=== PATIENT | male | born 1970 | race Caucasian/White ===

== ENCOUNTER → 2016-05-03 | Day surgery (SDC) | payer OTHER ==
[~2016-05-03] VITALS: Ht 175.3 cm; Wt 137.5 kg
[~2016-05-03] MED LIST: ACETAMINOPHEN 325 MG TAB PO PRN; ADVIN50/60 INH; ALBUAER19 INH; ASPI325T39 PO; BUSP5TAB59 PO; CHOL2000 PO; CRS10 PO; DIGO0.2519 PO; ESCI1TAB10 PO; FENTANYL CITRATE INJ 50 MCG/1 ML 2 ML VIAL ONE; FEXO1TAB49 PO; FLUO0.0566 TOP; FRS/40 PO; HEPARIN SOD (PORCINE) 1000 UNIT/ML 10 ML VIAL ONE; LISI5TAB PO; METH-307 PO; METO1TAB70 PO; MIDAZOLAM HCL 1 MG/ML 2ML VIAL ONE; NORT25CA PO; NiCARDipine HCL INJ 2.5 MG/ML 10 ML AMP ONE; OMEP40CA PO; POTA10CA28 PO; PRLSR20 PO; ROSU5TAB PO; SPRIN/30 INH; SYMIN160 INH; TPRSR100 PO
[2016-05-03 06:21] VITALS: Ht 175.3 cm; Wt 137.5 kg
[2016-05-03 06:22] VITALS: BP 136/92; PULSE 84; TEMP 36.4; O2SAT 94
--- NOTE | 2016-05-03 07:22 | Procedure Note ---
Pre-Mod Sedation Assessment General Date of Moderate Sedation: May 03, 2016. Vital Signs: Vital Signs Past 12 Hours Date Time Temp Pulse Resp B/P Pulse Ox O2 Delivery O2 Flow Rate FiO2 05/03/16 06:22 36.4 84 18 136/92 94 Room Air Review Cardiovascular: regular rate, rhythm, normal peripheral pulses, + JVD Abdomen: normal bowel sounds, non tender, soft, + distended Lungs: lungs clear, normal breath sounds, no respiratory distress Airway Class: III Pre-Sedation Airway Assessment Oral Cavity: Dental Abnormalities Short Thick Neck: Yes Hx of Sleep Apnea: Yes Smoking Status: Former Smoker ASA Classification: Class III Procedure Planning Contraindications-for Mod Sed: None Yes Notes The planned sedation has been discussed with the patient and consent obtained. I have identified the patient, determined the appropriateness of sedation and have assessed the patient immediately prior to the procedure. All medicine(s) and interventions are by my order.
--- NOTE | 2016-05-03 08:13 | Discharge Instructions ---
Discharge Instructions Procedure Procedure Date: May 03, 2016. Reason for Visit: Chest Pain. Discharge Discharge Date: May 03, 2016. Discharge Diagnosis: Non-ischemic cardiomyopathy/Congestive heart failure Last Recorded Wt (Kilograms): 137.5 Anesthesia Post Anesthesia Instructions: With IV Sedation: * Do not drive today. * May resume driving tomorrow * Do not make important decisions or sign legal documents today. * Call [facility] if: 1. Temperature elevations greater than 101 degrees F. 2. Uncontrollable pain. 3. Excessive bleeding, bruising or redness around access sites 4. Persistent nausea and vomiting. 5. Medication intolerance (nausea, vomiting or rash). * For nausea and vomiting use only clear liquids such as: tea, soda, bouillon until nausea subsides, then gradually increase diet as tolerated. * If you have any concerns or questions, call your cardiologists office. If physician is unavailable and it is an emergency, call 911 or go to the nearest emergency room. Instructions Activity Recommendations: limitations as noted below (Avoid flexing right wrist for 24 hours. Avoid flexing righ hip for 24 hours. No heavy lifting (> 20 lbs) for 72 hours. After 72 hours can resume normal activities gradually.), shower/bathe limit (No soaking tub bathes for 5 days) Allergies: Coded Allergies: Latex (Unverified Allergy, Mild, Contact, 05/03/16) Penicillins (Unverified Allergy, Unknown, HIVES, 11/10/14) Uncoded Allergies: TAPE (Allergy, Unknown, Rash, 05/03/16) Follow Up Additional Instructions: Take Lasix 80 mg (2 tablets) twice daily for next 3 days. Then resume prior Lasix 40 mg twice daily Continue to weigh yourself daily. Follow-up with: Follow-up with CHF clinic in 2 weeks. Follow-up with Dr. Cuellar in 2 months. [facility] Recommendations: Call your doctor if: * Temperature above 101 degrees * Pain not relieved by pain medicine ordered * There is increased drainage or redness from any incision * You have any unanswered questions or concerns. Your Doctors Instructions noted above were prepared by provider Linwood Cuellar. Patient Signature Section: Patient Instructions Signature Page Orion Oliva Patient (or Guardian) Signature/Date: I have read and understand the instructions given to me by my caregivers. Caregiver/RN/Doctor Signature/Date: The above-named patient and/or guardian has received patient instructions on this date. + Original Patient Signature Page (only) stays with chart. Please make copy for patient.
--- NOTE | 2016-05-03 08:14 | Procedure Note ---
Post-Mod Sedation Assessment General Date of Moderate Sedation May 03, 2016. Vital Signs: Vital Signs Past 12 Hours Date Time Temp Pulse Resp B/P Pulse Ox O2 Delivery O2 Flow Rate FiO2 05/03/16 08:00 77 16 134/83 95 Nasal Cannula 2 05/03/16 06:22 36.4 84 18 136/92 94 Room Air Review - Discharge Criteria Vital Signs Stable: Yes Alert/Oriented/Conversant: Yes Returned to Baseline Mental St: Yes Nausea Absent/Minimal: Yes Pain/Discomfort/Absent/Minimal: Yes Normal/Baseline Respirations: Yes Active Bleeding?: No Pt Received D/C Instructions: Yes Prescriptions Given: None Specific Proced. D/C Criteria Distal Pulses Present (Cardiac: Yes Groin site assessed-Card Cath: Yes Voided Prior To Discharge: N/A Discharged Patients Adult Escort/Transportation: Yes
[2016-05-03 08:22] LABS: ISTAT ARTERIAL BLOOD GAS HCO3 41 meq/L (19-24); ISTAT ARTERIAL BLOOD GAS PCO2 72 mmHg (35-46); ISTAT ARTERIAL BLOOD GAS PO2 91 mmHg (80-95); ISTAT ARTERIAL BLOOD GAS pH 7.36 (7.35-7.45); ISTAT CARBON DIOXIDE > 40 mEq/l (24-31)
[2016-05-03 08:22] LABS: ISTAT ARTERIAL BLOOD GAS HCO3 45 meq/L (19-24); ISTAT ARTERIAL BLOOD GAS PCO2 76 mmHg (35-46); ISTAT ARTERIAL BLOOD GAS PO2 38 mmHg (80-95); ISTAT ARTERIAL BLOOD GAS pH 7.38 (7.35-7.45); ISTAT CARBON DIOXIDE > 40 mEq/l (24-31)
--- NOTE | 2016-05-03 08:28 | Cardiac Catheterization ---
Procedure Note Procedure Date May 03, 2016. Pre-Procedure Diagnosis CHF, Cardiomyopathy AUC Score 7 Post-Procedure Diagnosis Normal Coronary Arteries, Elevated Intracardiac Pressures Procedure(s) Performed Coronary Angiography, Left Heart Cath, Right Heart Cath Director Dietetics Department Dr. Cuellar Note Taker(s) Glunt Estimated Blood Loss 20 Medication(s) Fentanyl, Heparin, Nitroglycerin, Versed, Lidocaine 1% Summary of Findings Indication: New Cardiomyopathy/CHF Access: 6Fr Slender Right Radial, 7Fr Right Femoral Vein (Latex Allergy) Catheters: Raghu Ferris Findings: LM - Luminal irregularities LAD - Moderate sized vessel that wraps around apex, mild 20% focal proximal stenosis, otherwise mid and distal luminal irregularities Circumflex - Moderate sized vessel with luminal irregularities RCA - Dominant, large vessel with luminal irregularities RA 14 RV 40/16 PA 40/21/30 LVEDP 25 ROSARIO/CI 6.3/2.6 TCO/CI 5.5/2.2 PA Sat 67 Arterial Closure: TR band Summary: 1. Essentially normal coronary arteries. Nonischemic Cardiomyopathy 2. Elevated biventricular filling pressures with mild pulmonary hypertension ( TPG 5) 3. Preserved cardiac output Recommendations: Increase diuretics, daily weights, close follow-up with CHF clinic Continue KIRILL/Beta-claude for nonischemic cardiomyopathy, titrate as able Continue ASA/statin Hemodynamics Rest Ao: 117/83/99 Final Ao: 118/77/95 LV: 122/25 Recommendations Medical therapy and/or Counseling Specimens None Contrast (mls) 50 Fluids (cc crystalloids) 25 Drains none Anesthesia moderate Procedural Complication(s) None Disposition Frame Table Operator Holding/Recovery ACC Data Cardiac Status Clinical evaluation leading to the procedure CAD Presntation: Sx unlikely to be ischemic Anginal Classification: CCS I Heart Failure: Yes, NYHA Class: CCS IV Cardiogenic Shock w/in 24Hrs: No Cardiac Arrest w/in 24Hrs: No Imaging studies past 6 months: Yes Stress studies past 6 months: No Standard Exercise Stress Test: No Stress Echocardiogram: No Stress Testing w/SPECT MPI: No Cardiac CTA: No Coronary Anatomy Dominant: Right Left Main (% Stenosis): Normal LAD (% Stenosis): Proximal (20) Circumflex (% Stenosis): Normal RCA (% Stenosis): Normal Diagnostic Physician's Name: Michael Cuellar MD Status: Elective Closure Device Percutaneous Entry Location: Radial Closure Device: Radial Band Recommendations: Medical therapy and/or Counseling Intraprocedure Events Significant Dissection: No Perforation: No
[2016-05-03 10:45] VITALS: BP 128/60; PULSE 74; O2SAT 96
== END | disposition home or self-care (01) ==
LOC: C.CATH 06:00
PROVIDERS: ATTEND Internal Medicine Interventional Cardiology
DX: I42.9 Cardiomyopathy, unspecified (principal); I27.2 Other secondary pulmonary hypertension; I50.9 Heart failure, unspecified; E78.5 Hyperlipidemia, unspecified; J90 Pleural effusion, not elsewhere classified; E66.01 Morbid (severe) obesity due to excess calories; G47.30 Sleep apnea, unspecified; Z68.41 Body mass index [BMI] 40.0-44.9, adult

== ENCOUNTER 2016-05-29 02:41 | Inpatient (IN) | payer OTHER ==
[~2016-05-29] VITALS: Ht 175.3 cm; Wt 142.2 kg
[~2016-05-29 02:41] MED LIST changes: -ACETAMINOPHEN 325 MG TAB PO PRN; -CRS10 PO; -FENTANYL CITRATE INJ 50 MCG/1 ML 2 ML VIAL ONE; -HEPARIN SOD (PORCINE) 1000 UNIT/ML 10 ML VIAL ONE; -METO1TAB70 PO; -MIDAZOLAM HCL 1 MG/ML 2ML VIAL ONE; -NiCARDipine HCL INJ 2.5 MG/ML 10 ML AMP ONE; -PRLSR20 PO
[2016-05-29 10:15] VITALS: BP 137/89; PULSE 75; TEMP 36.5; O2SAT 98; Ht 175.3 cm; Wt 142.2 kg
[2016-05-29] MEDS ORDERED: ONDANSETRON INJ 2 MG/ML 2 ML VIAL IV PRN (11:15)
[2016-05-29] MEDS ORDERED: ACETAMINOPHEN 325 MG TAB PO PRN (11:15)
[2016-05-29] MEDS ORDERED: ALBUTEROL HFA 8 GM INHALER INH PRN (11:30)
[2016-05-29 11:56] VITALS: BP 128/80; PULSE 74; TEMP 36.8; O2SAT 98
[2016-05-29] MEDS: SODIUM CHLORIDE 0.9% 1000ML 1,000 ML IV SCH ×2 (12:00→19:53)
[2016-05-29 12:35] LABS: HEMATOCRIT 41.7 % (42-52); MEAN CELL VOLUME 87.4 fL (80-100); MEAN CORPUSCULAR HEMOGLOBIN 30.4 pg (25-34); MEAN CORPUSCULAR HGB CONC 34.8 g/dl (32-36); MEAN PLATELET VOLUME 8.6 fL (7.4-10.4); PLATELET COUNT 252 K/uL (130-400); RED BLOOD COUNT 4.77 M/uL (4.7-6.1); WHITE BLOOD COUNT 7.78 K/uL (4.8-10.8)
--- NOTE | 2016-05-29 12:39 | HISTORY & PHYSICAL EXAMINATION ---
DATE OF ADMISSION: 05/29/2016 PRIMARY CARE PHYSICIAN: Dr. Moya from [place]. CHIEF COMPLAINT: Tiredness and increasing shortness of breath on exertion and also noted to have abnormal labs at [facility]. HISTORY OF PRESENT COMPLAINT: He is a 45-year-old obese male with significant past medical history of sleep apnea, COPD, cardiomyopathy with EF of 15%, hyperlipidemia, hypertension, GERD, apparently has been complaining of shortness of breath on exertion for a while. The symptoms have been going on since January of last year. He was seen by his primary care physician and for chronic leg edema, he was sent to [facility] in the lymphedema clinic and from there he was told that he needs to be seen by his primary care physician to work up for probable CHF. He went to see his primary care physician on and with more shortness of breath and chest pain. Following that, he was in [facility] and was noted to have an EF of 15%, so he was referred for cardiac cath at [facility]. He underwent a cardiac cath on 03 of May and was told that he does not have any significant coronary artery disease, but he has cardiomyopathy and with EF of 15%. Following that, he has had blood work that was on of last month and noted to have a creatinine of 1.3 at that time and yesterday he had another blood work and that did show creatinine to go up at 4.5 and he was in [facility] following that abnormal lab work and from the ER, he has been sent to [facility] for continuation of the medical care. He complains to have weakness and tiredness and shortness of breath on exertion but he does not have any chest pain, any palpitation. He denies to have any fever, chills or rigors and he does not have any problem with urine and/or bowel habit and his legs have reasonably controlled edema at this time. In [facility], he was noted to have a potassium of 5.2. BUN of 57 and creatinine 4.28 and digoxin level of 2.3. He has been in telemetry unit of [facility] and will go from there. PAST MEDICAL HISTORY: Significant for COPD with emphysema, hypertension, hyperlipidemia, sleep apnea, has not been using any CPAP but uses oxygen all the time, GERD, obesity, and also recent diagnosis of cardiomyopathy with EF of 15%. PAST SURGICAL HISTORY: Tonsillectomy as a child. FAMILY HISTORY: Significant that father of heart attack and mother of complication of diabetes and pneumonia. Brother has diabetes too. SOCIAL HISTORY: He is . He has 2 children. He quit smoking long time ago. He drinks occasionally and he has been on oxygen 24 hours a day, but he can do his activities of daily living pretty well. ALLERGIES: LATEX, PENICILLIN AND TAPE. MEDICATIONS: As an outpatient, he has been on digoxin 250 mcg 1 daily, furosemide 40 mg twice daily, lisinopril 5 mg daily, albuterol inhaler 2 puffs q.i.d. as needed, aspirin 325 mg daily, Symbicort 160/4.5 two puffs b.i.d., buspirone 5 mg twice daily, vitamin D3 2000 units daily, Lexapro 20 mg daily, Salena 180 mg daily, Advair Diskus 500/50 one puff b.i.d., Robaxin 750 mg daily, Toprol-XL 100 mg daily, nortriptyline 25 mg at night, Prilosec 40 mg daily, potassium 10 mEq daily, Crestor 10 mg daily, Spiriva HandiHaler 1 cap inhalation daily. REVIEW OF SYSTEMS: As in history of present complaint. Other systemic review unremarkable. PHYSICAL EXAMINATION: GENERAL: On examination on the medical floor, he was not having any acute distress. VITAL SIGNS: Temperature 36.5, pulse was 75, blood pressure 137/89, saturation 98% on 2 liters nasal cannula. HEENT: Unremarkable. NECK: Supple. No JVD, no bruit. CHEST: Decreased breath sounds but no wheezing and/or crackles. HEART: S1, S2 regular. No murmur. ABDOMEN: Soft, benign, distended. Nontender. Bowel sounds present. EXTREMITIES: 1+ edema bilaterally, chronic skin changes but no significant ulceration. MUSCULOSKELETAL SYSTEM: No acute arthritis in any joint. CENTRAL NERVOUS SYSTEM: He was alert, awake, oriented x3. No focal sensory and/or motor deficit appreciated. LABORATORY DATA: Noted from [facility], potassium 5.2, BUN 57. Creatinine 4.28, his creatinine was 1.3 on 16th of last month and his digoxin level was 2.3. EKG will be reviewed and chest x-ray will be reviewed as well. IMPRESSION AND PLAN: 1. Acute renal failure with Hyperkalemia. He is admitted to telemetry unit, monitor his kidney function. We will get a nephrology consult. We will give a small amount of IV fluid, given the history of congestive heart failure and the acute renal failure could be due to contrast induced nephropathy.Hold Potassium and ACEI. 2. Congestive heart failure with cardiomyopathy. His ejection fraction documented 15%. I did not get the cath report from [facility]. We will get a cardiology evaluation while in the hospital for further management of his cardiomyopathy and congestive heart failure. 3. Chronic obstructive pulmonary disease, seems to be stable at this time. Continue with inhalers and other bronchodilators. 4. Sleep apnea. He has not been using any CPAP and/or BiPAP. We will continue his oxygen therapy as usual. 5. Gastroesophageal reflux disease, has been on PPI. 6. Deep venous thrombosis prophylaxis with subQ heparin. 7. Code status: He will be a full code. In my clinical assessment, the beneficiary meets criteria as per CMS for 2-midnight stay in the hospital. KASIA
[2016-05-29 12:51] LABS: PARTIAL THROMBOPLASTIN RATIO 1.1; PROTHROMBIN TIME (PATIENT) 10.7 SECONDS (9.0-12.0)
--- NOTE | 2016-05-29 12:53 | DIAGNOSTIC IMAGING REPORT ---
CHEST ONE VIEW PORTABLE CLINICAL HISTORY: Congestive heart failure. COMPARISON STUDY: No previous studies for comparison. FINDINGS: The patient is rotated. This likely accounts for an abnormal left upper mediastinal contour. No pneumothorax or pleural effusion is present. There is borderline cardiomegaly without radiographic evidence of pulmonary edema. No consolidation is identified. IMPRESSION: 1. No acute cardiopulmonary findings. 2. Rotated study which likely accounts for an apparent abnormal left upper mediastinal contour. Follow-up nonemergent PA and lateral radiographs of the chest are recommended. Electronically signed by: Nikita Sanchez M.D. 05/29/2016 12:51 PM Dictated Date/Time: 05/29/2016 12:50 PM
[2016-05-29 12:54] LABS: ALT/SGPT 16 U/L (12-78); AST/SGOT 10 U/L (15-37); BLOOD UREA NITROGEN 55 mg/dl (7-18); BUN/CREATININE RATIO 14.5 (10-20); CALCIUM 8.4 mg/dl (8.5-10.1); CARBON DIOXIDE 29 mmol/L (21-32); CHLORIDE 103 mmol/L (98-107); GLUCOSE 97 mg/dl (70-99); MAGNESIUM 2.1 mg/dl (1.8-2.4); POTASSIUM 5.5 mmol/L (3.5-5.1); SODIUM 138 mmol/L (136-145)
[2016-05-29 12:57] LABS: ALKALINE PHOSPHATASE 43 U/L (45-117); PHOSPHORUS 3.5 mg/dl (2.5-4.9)
[2016-05-29] MEDS: HEPARIN SOD 5000 UNIT/0.5 ML CARP SQ SCH ×2 (14:15→21:54)
--- NOTE | 2016-05-29 14:56 | CARDIOLOGY CONSULTATION ---
DATE OF CONSULTATION: 05/29/2016 CONSULTATION REQUESTED BY: Dr. Cho. REASON FOR CONSULTATION: History of heart failure, acute kidney insufficiency. HISTORY OF PRESENT ILLNESS: Mr. Oliva is a pleasant 45-year-old man with a history of nonischemic cardiomyopathy, acute chronic systolic heart failure and complex medical issues as discussed below, who was admitted in the setting of acute kidney injury. Cardiology consulted for further management in the setting of patient's heart failure. As an outpatient, the patient is followed by myself and the [facility]. He was initially seen in consultation back in April, at which time he had recently been hospitalized at [facility] after he had had months of progressive lower extremity edema and shortness of breath. He was found to be in new onset heart failure and initial echo done there showed an EF of 15%. He was diuresed and started on guideline directed medical therapy. At time of initial evaluation concern for potential ischemic cause for patient's new LV dysfunction and he was sent for left and right heart catheterization which was completed 4 weeks ago. Heart catheterization showed no significant coronary artery disease. He was noted to have mildly elevated biventricular filling pressures with mild pulmonary hypertension and was continued on b.i.d. diuretics. Following discharge he followed up with the heart failure clinic 1 week ago, at which time the patient still appeared to be mildly volume overloaded and was continued on b.i.d. Lasix 40 mg p.o. Of note though, his shortness of breath had significantly improved and his weight continued to trend down. Since that visit, the patient states that he has continued to feel well. He had been ordered routine surveillance lab studies yesterday which were remarkable for elevated digoxin level at 2.5, a BUN elevated at 55, and a creatinine up to 4.4. Per prior creatinine baseline reportedly around 1.0, 1.1. He was instructed by his primary care physician to present to [facility], where reportedly received gentle IV fluids overnight and was transferred to [facility] this morning. Overall, at present, the patient states he feels well. Was feeling at his baseline, and denies any new chest pain, fevers, chills, any bleeding or other change in his urinary frequency. PAST MEDICAL HISTORY: 1. Chronic systolic heart failure. 2. Nonischemic cardiomyopathy with EF of 15%. 3. Mild chronic kidney disease with prior acute renal failure. 4. GERD. 5. Hypertension. 6. Morbid obesity. 7. Obstructive sleep apnea. 8. COPD. 9. Prior lower extremity cellulitis. 10. Vitamin D deficiency. 11. Hyperlipidemia. PRIOR SURGICAL PROCEDURES: The patient with prior history of [id number], status post ablation at [facility] in 1992. He also had a ganglion cyst removed from his right wrist, and had eye surgery for a lazy eye. FAMILY HISTORY: Father of an VT in his early 50s. He has multiple relatives on his father's side with premature coronary artery disease. SOCIAL HISTORY: He is a former smoker, he quit in 2008. Denies any heavy alcohol use. Denies any illicit drugs. He is with 2 children. Unable to work currently, attempting to get disability. HOME MEDICATIONS: Include Advair, albuterol, aspirin 325, buspirone, Crestor 5, digoxin 0.25 daily, fexofenadine, furosemide 40 b.i.d., Lexapro, lisinopril 10, nortriptyline, potassium, Prilosec, Spiriva, Toprol-XL 100 mg daily, vitamin D3. ALLERGIES: HE IS ALLERGIC TO PENICILLIN, ADHESIVE TAPE, LASIX. PHYSICAL EXAMINATION: VITAL SIGNS: Temperature 36.8, pulse 74, blood pressure 128/80, he satting 98% on 2 liters. GENERAL: The patient appears comfortable, obese, mildly sleepy, but in no acute distress. HEENT: His sclerae are anicteric. His oropharynx is clear. Throat moist. NECK: Supple with no lymphadenopathy. He has no jugular venous distention. LUNGS: Clear. No crackles, rhonchi or wheezes. CARDIAC: He has distant heart sounds, but is regular with no appreciable murmurs, rubs or gallops. ABDOMEN: Obese, soft, nontender with positive bowel sounds. EXTREMITIES: Lukewarm with signs of chronic venous stasis, but no significant lower extremity edema at present. SKIN: Shows no significant rashes or lesions. NEUROLOGIC: Cranial nerves II-XII are grossly intact. The remainder of his exam is nonfocal. DATA: Sodium 138, potassium 5.5, bicarbonate of 29, BUN of 55, creatinine of 3.8, his calcium was 8.4, his magnesium was 2.1. LFTs were within normal limits. Albumin was low at 2.7. INR was 1.0. His white blood cell count was 7.8, hemoglobin of 14.5, platelets of 252. Chest x-ray showed no acute cardiopulmonary process. EKG showed normal sinus rhythm with first degree AV block, otherwise no dynamic ST changes. PRIOR CARDIOVASCULAR STUDIES: Cardiac catheterization on 05/03/2016, left main with luminal irregularities, LAD with 20% focal proximal stenosis, otherwise luminal irregularities. Circumflex luminal irregularities. RCA luminal irregularities. Right heart catheterization: RA of 14. RV 40/16. PA 40/21 with a mean of 30. LVDP was 25. Chris cardiac output was 6.3. Cardiac index was 2.6. PA sat was 67. IMPRESSION AND PLAN: 1. Acute kidney failure. 2. Chronic systolic heart failure. 3. Nonischemic cardiomyopathy. 4. Chronic obstructive pulmonary disease. 5. Morbid obesity. 6. Hypertension. 7. Dyslipidemia. At present, the patient appears warm and dry and suspect that the patient's acute renal failure is secondary to over diuresis having been on b.i.d. diuretics for the last 2 weeks. Diuretics appropriately held. Has been given gentle fluids and creatinine seems to be trending in the right direction. Going forward, would continue to hold diuretics continue to hold KIRILL inhibitor, continue to hold digoxin. Digoxin can be stopped going forward. Agree with continued gentle fluids for now, with target approximately +500 for today. Will continue to follow while in hospital and will need close heart failure clinic followup. Thank you for allowing us to participate in the care of this patient. Please contact with any questions. KASIA
[2016-05-29 15:42] VITALS: BP 122/74; PULSE 76; TEMP 36.8; O2SAT 95
[2016-05-29 19:39] LABS: BUN/CREATININE RATIO 14.4 (10-20); CALCIUM 8.2 mg/dl (8.5-10.1); CREATININE 3.6 mg/dl (0.60-1.40)
[2016-05-29 19:45] VITALS: BP 130/80; PULSE 79; TEMP 36.8; O2SAT 95
[2016-05-29] MEDS: FLUTICASONE/SALMETEROL (ADVAIR) 500/50 INH 14 PUFF INH SCH (19:55)
[2016-05-29] MEDS: BUDESONIDE/FORMOTEROL FUMARATE 160/4.5 60 PUFFS/INHALER INH SCH (19:55)
[2016-05-29] MEDS: NORTRIPTYLINE HCL 25 MG CAP PO SCH (19:56)
[2016-05-29] MEDS: TIOTROPIUM BROMIDE 5 PUFF/90 MCG INH INH SCH (19:59)
[2016-05-29 20:00] VITALS: O2SAT 95
[2016-05-29] MEDS ORDERED: NON-FORMULARY MEDICATION (Fluocinonide 1 APPLN) TOP SCH (21:00)
[2016-05-29 23:20] VITALS: BP 132/78; PULSE 86; TEMP 36.7; O2SAT 97
[2016-05-30] VITALS (9 sets, daily range): BP systolic 119–156; BP diastolic 76–90; PULSE 67–96; TEMP 36.4–37.1; O2SAT 96–98
[2016-05-30] MEDS: HEPARIN SOD 5000 UNIT/0.5 ML CARP SQ SCH ×3 (05:50→20:11)
[2016-05-30 06:07] LABS: HEMATOCRIT 38.9 % (42-52); MEAN CELL VOLUME 87.4 fL (80-100); MEAN CORPUSCULAR HEMOGLOBIN 29.7 pg (25-34); MEAN CORPUSCULAR HGB CONC 33.9 g/dl (32-36); MEAN PLATELET VOLUME 8.6 fL (7.4-10.4); PLATELET COUNT 197 K/uL (130-400); RED BLOOD COUNT 4.45 M/uL (4.7-6.1); WHITE BLOOD COUNT 7.11 K/uL (4.8-10.8)
[2016-05-30 06:42] LABS: BUN/CREATININE RATIO 14.1 (10-20); CALCIUM 8.1 mg/dl (8.5-10.1); CREATININE 3.6 mg/dl (0.60-1.40); POTASSIUM 5.2 mmol/L (3.5-5.1)
--- NOTE | 2016-05-30 08:58 | NEPHROLOGY CONSULTATION ---
DATE OF CONSULTATION: 05/30/2016 ATTENDING OF RECORD: Dr. Cho. REASON FOR CONSULTATION: MANN. HISTORY OF PRESENT ILLNESS: This is a 45-year-old morbidly obese male who has a significant history of sleep apnea, currently not on CPAP, underlying COPD, cardiomyopathy with an EF of 15%, chronic lymphedema, hypertension for about 15 years, prediabetes, who was evaluated by my partner, Dr. Raven Gonzalez, in the past for hypertension. The patient has been having worsening shortness of breath and had a recent cardiac catheterization on May 03, which showed normal coronaries; however, does have cardiomyopathy with an EF of 15%. Creatinine was 1.3 at that time and the patient was placed on diuretics and creatinine went up to 4.5 during outpatient lab work. The patient's edema in his legs went down remarkably and he was feeling well when told to come to the Emergency Room for the worsening kidney function. States he was breathing well. Edema was good. No chest pain. REVIEW OF SYSTEMS: No fevers or chills. Does have significant weight loss of about 60 pounds over the past year. No fatigue. No blurry vision. No dysphagia. No itching or rash. No chest pain. Does have shortness of breath with exertion, but overall has been breathing better. Chronic lymphedema which is remarkably improved. No significant nausea, vomiting. No diarrhea or constipation. All other review of systems otherwise negative. PAST SURGICAL HISTORY: Tonsillectomy, otherwise no other surgeries. PAST MEDICAL HISTORY: COPD, Chronic lymphedema, Obesity, Pre-diabetes, HTN, Cardiomyopathy FAMILY HISTORY: Heart disease and diabetes. SOCIAL HISTORY: with 2 children. Quit smoking in 1999, occasional alcohol. Lives at home with family. OUTPATIENT MEDICATIONS: Were significant for Lasix 40 mg twice a day, lisinopril 5 mg a day, potassium 10 mEq a day. CURRENT MEDICATIONS: Aspirin 325 mg daily, Lexapro 20 mg daily, Salena 180 mg daily, Robaxin 750 mg daily, Crestor 10 mg daily, Spiriva 1 puff inhaler daily, vitamin D 2000 units daily, Toprol-XL 100 mg daily, Protonix 40 mg daily, normal saline at 125 mL an hour, BuSpar 5 mg p.o. b.i.d., Symbicort 2 puffs inhaled twice a day, Advair inhaler twice a day, heparin 5000 units subQ q. 8. PHYSICAL EXAMINATION: VITAL SIGNS: Temperature 37.1, pulse 94, blood pressure 148/76, satting 97% on 2 liters. GENERAL: Awake, alert, oriented x3, morbidly obese. EYES: No or icterus. ENT: Moist mucous membranes. NECK: Supple. PULMONARY: Clear to auscultation. CARDIAC: Regular rate and rhythm. ABDOMEN: Bowel sounds positive, soft, nontender, nondistended. EXTREMITIES: Mild edema. NEUROLOGICALLY: Nonfocal: DERMATOLOGIC: No rash or ulcers noted. LABORATORIES: White count 7, H\T\H 13 and 38, platelet count is 197. Sodium level 140, potassium 5.2, chloride is 106, bicarbonate is 28, BUN is 51, creatinine is 3.6, glucose 102, calcium is 8.1. Albumin is 2.7. INR is 1. Digoxin is 1.9. Chest x-ray shows no acute cardiopulmonary findings. ASSESSMENT AND PLAN: 1. Acute kidney injury in the setting of Lasix 40 mg b.i.d., nonoliguric and relatively asymptomatic. No longer smokes. He is a pre-diabetic. Has had hypertension for 15 years. Occasionally, takes nonsteroidal anti-inflammatory drugs. Appears likely to have over diuresis; however, creatinine is slow to recover. So appears to have been significant enough to cause acute tubular necrosis. I do not feel this is contrast-induced nephrotoxicity given the chronicity. Would have expected a recovery by now if that was the case. Would like to check a renal ultrasound to rule out hydro and to screen for medical renal disease and check size of kidneys. Would encourage continued fluids at a low rate of 100 mL an hour given his morbid obesity, 100 mL an hour is minimal. Would also like to give albumin 12.5 grams IV b.i.d. for the next couple days to mobilize any third spaced fluid and help increase perfusion to the kidneys. Expect creatinine to eventually recover, but overall has a poor prognosis given his morbid obesity, cardiomyopathy, hypertension, prediabetes, sleep apnea. Recommend followup with either myself or my partner Dr. Raven Gonzalez, in [facility]. We both go there. The patient is agreeable to see either one of us. Will continue to monitor for signs of volume overload. Case was discussed with exhaust equipment operator, Dr. Julio Cesar Cuellar, who is in agreement with the plan. Answered the patient's questions thoroughly. MTDD
[2016-05-30] MEDS ORDERED: POTASSIUM CHLORIDE 10 MEQ TABCR PO SCH (09:00)
[2016-05-30] MEDS: BUDESONIDE/FORMOTEROL FUMARATE 160/4.5 60 PUFFS/INHALER INH SCH ×2 (09:00→20:20)
[2016-05-30] MEDS: SODIUM CHLORIDE 0.9% 1000ML 1,000 ML IV SCH ×5 (09:00→20:01)
[2016-05-30] MEDS: FLUTICASONE/SALMETEROL (ADVAIR) 500/50 INH 14 PUFF INH SCH ×2 (09:14→20:07)
[2016-05-30] MEDS: TIOTROPIUM BROMIDE 5 PUFF/90 MCG INH INH SCH ×2 (09:14→20:08)
[2016-05-30] MEDS: METOPROLOL SUCC 50MG EXT REL TAB PO SCH (09:15)
[2016-05-30] MEDS: FEXOFENADINE HCL 180 MG TAB PO SCH (09:15)
[2016-05-30] MEDS: ESCITALOPRAM OXALATE 20 MG TAB PO SCH (09:16)
[2016-05-30] MEDS: METHOCARBAMOL 750 MG TAB PO SCH (09:16)
[2016-05-30] MEDS: PANTOprazole SOD 40 MG TAB PO SCH (09:16)
[2016-05-30] MEDS: ASPIRIN 325 MG ECTAB PO SCH (09:16)
[2016-05-30] MEDS: ROSUVASTATIN CALCIUM 10 MG TAB PO SCH (09:17)
[2016-05-30] MEDS: CHOLECALCIFEROL 1000 INTER.UNIT TAB PO SCH (09:17)
[2016-05-30] MEDS: ALBUMIN HUMAN 25% 12.5 GM/50 ML VIAL IV SCH ×2 (09:23→20:05)
--- NOTE | 2016-05-30 10:17 | DIAGNOSTIC IMAGING REPORT ---
ULTRASOUND KIDNEYS AND BLADDER CLINICAL HISTORY: Acute renal insufficiency. COMPARISON STUDY: No priors. TECHNIQUE: Real-time, grayscale, and color flow sonography of the kidneys and bladder is performed. Images are reviewed in the transverse and longitudinal planes. FINDINGS: Kidneys: The kidneys are normal in size and echotexture. The right kidney measures 11.4 x 7.2 x 6.7 cm and the left kidney measures 11.6 x 5.8 x 5.7 cm. There is no hydronephrosis. No shadowing renal calculi are identified. There is no sonographic evidence of contour deforming renal mass lesion. No perinephric fluid is identified. Bladder: The bladder is decompressed and not well assessed. Ureteral jets were not seen. IMPRESSION: 1. The kidneys are normal in size and without hydronephrosis. 2. The bladder was decompressed and not well evaluated. Electronically signed by: Ramiro Taylor M.D. 05/30/2016 10:16 AM Dictated Date/Time: 05/30/2016 10:14 AM
--- NOTE | 2016-05-30 13:12 | Progress Note ---
Internal Med Progress Note Date of Service: May 30, 2016. Provider Documentation: SUBJECTIVE: The patient was seen and examined Denies any complaints OBJECTIVE: Vital Signs-as noted below Exam: General-No distress at rest Eyes-normal ENT-normal Neck-supple Lungs-decreased breath sound bilaterally No crackles Heart-Regular Abdomen-Benign,no masses,bowel sound present Extremities-1+ edema bilaterally Chronic skin changes Neuro-AAOX3 Lab data as noted below. ASSESSMENT & PLAN: Acute renal failure with Hyperkalemia. Baseline Creatinine was slightly high Likely etiology being Dehydration ,use of Diuretics,recent use of Contrast Will give cautious amount of IVF Appreciate Nephrology input -Albumin and IVF Monitor PRP Congestive heart failure with cardiomyopathy. His ejection fraction documented 15%. No acute symptoms Appreciate cardiology input Chronic obstructive pulmonary disease, seems to be stable at this time. Continue with inhalers and other bronchodilators. Sleep apnea. He has not been using any CPAP and/or BiPAP. We will continue his oxygen therapy as usual. Gastroesophageal reflux disease, has been on PPI. Deep venous thrombosis prophylaxis with subQ heparin. Code status: He will be a full code. DISPOSITION Awaited Vital Signs: Date Time Temp Pulse Resp B/P Pulse Ox O2 Delivery O2 Flow Rate FiO2 05/30/16 11:41 36.9 96 20 156/90 97 Nasal Cannula 2.0 05/30/16 07:39 36.4 87 20 119/79 96 Nasal Cannula 2.0 05/30/16 04:00 97 Nasal Cannula 2.0 05/30/16 03:05 37.1 94 20 148/76 97 Nasal Cannula 2.0 05/30/16 00:01 97 Nasal Cannula 2.0 05/29/16 23:20 36.7 86 18 132/78 97 Nasal Cannula 2.0 05/29/16 20:00 95 Nasal Cannula 2.0 05/29/16 19:45 36.8 79 20 130/80 95 Nasal Cannula 2.0 05/29/16 16:00 Nasal Cannula 2.0 05/29/16 15:42 36.8 76 18 122/74 95 Lab Results: Results Past 24 Hours Test 05/29/16 19:05 05/30/16 05:42 Range/Units Sodium Level 138 140 136-145 mmol/L Potassium Level 5.0 5.2 3.5-5.1 mmol/L Chloride Level 102 106 98-107 mmol/L Carbon Dioxide Level 30 28 21-32 mmol/L Anion Gap 6.0 6.0 3-11 mmol/L Blood Urea Nitrogen 52 51 7-18 mg/dl Creatinine 3.60 3.60 0.60-1.40 mg/dl Est Creatinine Clear Calc Drug Dose 36.0 36.1 ml/min Estimated GFR () 22.4 22.4 Estimated GFR (Non- 19.4 19.4 BUN/Creatinine Ratio 14.4 14.1 10-20 Random Glucose 111 102 70-99 mg/dl Calcium Level 8.2 8.1 8.5-10.1 mg/dl White Blood Count 7.11 4.8-10.8 K/uL Red Blood Count 4.45 4.7-6.1 M/uL Hemoglobin 13.2 14.0-18.0 g/dL Hematocrit 38.9 42-52 % Mean Corpuscular Volume 87.4 80-100 fL Mean Corpuscular Hemoglobin 29.7 25-34 pg Mean Corpuscular Hemoglobin Concent 33.9 32-36 g/dl RDW Standard Deviation 40.8 36.4-46.3 fL RDW Coefficient of Variation 12.6 11.5-14.5 % Platelet Count 197 130-400 K/uL Mean Platelet Volume 8.6 7.4-10.4 fL Magnesium Level 2.0 1.8-2.4 mg/dl
--- NOTE | 2016-05-30 15:17 | Cardiology Follow-Up ---
Subjective Subjective Date of Service: May 30, 2016. Pt evaluation today including: conversation w/ patient, physical exam, chart review, lab review, review of studies, review of inpatient medication list Additional Details: Patient is feeling fine. Denies any significant shortness of breath. Denies any chest pain. No other new complaints. Review of Systems Constitutional: No fever Respiratory: No cough, No shortness of breath Cardiac: No chest pain Abdomen: No nausea, No pain Neurologic: No memory loss Heme: No abnormal bleeding/bruising Skin: No rash Objective Vital Signs Last Vital Signs Documentation Date Time Temp Pulse Resp B/P Pulse Ox O2 Delivery O2 Flow Rate FiO2 05/30/16 12:00 Nasal Cannula 2.0 05/30/16 11:41 36.9 96 20 156/90 97 Physical Exam: General Appearance: WD/WN, no apparent distress Neck: no JVD Respiratory/Chest: lungs clear, normal breath sounds Cardiovascular: regular rate, rhythm, no JVD, no murmur Abdomen: non tender, soft Extremities: no pedal edema, no calf tenderness, + pertinent finding (Chronic venous stasis changes) Neurologic/Psychiatric: alert, normal mood/affect Skin: normal color, warm/dry, no rash Assessment and Plan 1. Acute kidney failure 2. Chronic systolic heart failure 3. Nonischemic cardiomyopathy 4. Hypertension Net positive yesterday, serum creatinine relatively stable, no signs of clinical heart failure on exam today --agree with continuing to hold diuretics. --continued gentle fluids per renal --KIRILL-inhibitor on hold, otherwise no change to cardiac regimen Will continue to follow. [facility] Medicine and Nephrology care Medications: Current Inpatient Medications Medications (Trade) Dose Ordered Sig/Parish Route Start Time Stop Time Status Last Admin Dose Admin Heparin Sodium (Porcine) (Heparin Sq 5000 Unit/0.5ml) 5,000 unit Q8 SQ 05/29/16 14:00 06/28/16 13:59 05/30/16 05:50 5,000 UNIT Acetaminophen (Tylenol Tab) 650 mg Q4H PRN PO 05/29/16 11:15 06/28/16 11:14 Ondansetron HCl (Zofran Inj) 4 mg Q6H PRN IV 05/29/16 11:15 06/28/16 11:14 Albuterol (Ventolin Hfa Inhaler) 2 puffs QID PRN INH 05/29/16 11:30 06/28/16 11:29 Aspirin (Ecotrin Tab) 325 mg DAILY PO 05/30/16 09:00 06/29/16 08:59 05/30/16 09:16 325 MG Budesonide/ Formoterol Fumarate (Symbicort 160/ 4.5 Inh) 2 puffs BID INH 05/29/16 21:00 06/28/16 20:59 05/29/16 19:55 2 PUFFS Buspirone HCl (Buspar Tab) 5 mg BID PO 05/29/16 21:00 06/28/16 20:59 05/30/16 09:17 5 MG Escitalopram Oxalate (Lexapro Tab) 20 mg DAILY PO 05/30/16 09:00 06/29/16 08:59 05/30/16 09:16 20 MG Fexofenadine HCl (Salena Tab) 180 mg DAILY PO 05/30/16 09:00 06/29/16 08:59 05/30/16 09:15 180 MG Salmeterol Xinafoate/ Fluticasone (Advair Diskus 500/50 Inh) 1 puff BID INH 05/29/16 21:00 06/28/16 20:59 05/30/16 09:14 1 PUFF Methocarbamol (Robaxin Tab) 750 mg DAILY PO 05/30/16 09:00 06/29/16 08:59 05/30/16 09:16 750 MG Nortriptyline HCl (Pamelor Cap) 25 mg HS PO 05/29/16 21:00 06/28/16 20:59 05/29/16 19:56 25 MG Rosuvastatin Calcium (Crestor Tab) 10 mg DAILY PO 05/30/16 09:00 06/29/16 08:59 05/30/16 09:17 10 MG Tiotropium [place] (Spiriva Handihaler Inhaler) 1 puff DAILY INH 05/30/16 09:00 06/29/16 08:59 05/30/16 09:14 1 PUFF Cholecalciferol (Vitamin D Tab) 2,000 inter.unit DAILY PO 05/30/16 09:00 06/29/16 08:59 05/30/16 09:17 2,000 INTER.UNIT Metoprolol Succinate (Toprol Xl Tab) 100 mg DAILY PO 05/30/16 09:00 06/29/16 08:59 05/30/16 09:15 100 MG Pantoprazole Sodium (Protonix Tab) 40 mg QAM PO 05/30/16 09:00 06/29/16 08:59 05/30/16 09:16 40 MG Miscellaneous Information 1 ea 1 ea QS N/A 05/29/16 16:00 06/28/16 15:59 Sodium Chloride 1,000 ml @ 125 mls/hr Q8H IV 05/30/16 07:45 06/29/16 07:44 05/30/16 09:17 125 MLS/HR Sodium Chloride (Nss 1000ml) 1,000 ml @ 100 mls/hr Q10H IV 05/30/16 09:00 06/29/16 08:59 05/30/16 09:00 100 MLS/HR Albumin Human (Albumin 25%) 12.5 gm BID@0900,2100 IV 05/30/16 09:00 06/02/16 08:59 05/30/16 09:23 12.5 GM Lab Results: 05/30/16 05:42 05/30/16 05:42 Test 05/30/16 05:42 Red Blood Count 4.45 M/uL (4.7-6.1) Mean Corpuscular Volume 87.4 fL (80-100) Mean Corpuscular Hemoglobin 29.7 pg (25-34) Mean Corpuscular Hemoglobin Concent 33.9 g/dl (32-36) RDW Standard Deviation 40.8 fL (36.4-46.3) RDW Coefficient of Variation 12.6 % (11.5-14.5) Mean Platelet Volume 8.6 fL (7.4-10.4) Anion Gap 6.0 mmol/L (3-11) Est Creatinine Clear Calc Drug Dose 36.1 ml/min Estimated GFR () 22.4 Estimated GFR (Non- 19.4 BUN/Creatinine Ratio 14.1 (10-20) Calcium Level 8.1 mg/dl (8.5-10.1) Magnesium Level 2.0 mg/dl (1.8-2.4)
[2016-05-30] MEDS: NORTRIPTYLINE HCL 25 MG CAP PO SCH (20:07)
[2016-05-31] VITALS (9 sets, daily range): BP systolic 116–155; BP diastolic 63–113; PULSE 67–76; TEMP 36.8–37.1; O2SAT 97–99
[2016-05-31] MEDS: SODIUM CHLORIDE 0.9% 1000ML 1,000 ML IV SCH ×5 (05:22→23:43)
[2016-05-31] MEDS: HEPARIN SOD 5000 UNIT/0.5 ML CARP SQ SCH ×3 (06:25→21:10)
[2016-05-31] MEDS: ASPIRIN 325 MG ECTAB PO SCH (08:10)
[2016-05-31] MEDS: METOPROLOL SUCC 50MG EXT REL TAB PO SCH (08:10)
[2016-05-31] MEDS: METHOCARBAMOL 750 MG TAB PO SCH (08:10)
[2016-05-31] MEDS: FLUTICASONE/SALMETEROL (ADVAIR) 500/50 INH 14 PUFF INH SCH ×2 (08:11→20:58)
[2016-05-31] MEDS: CHOLECALCIFEROL 1000 INTER.UNIT TAB PO SCH (08:11)
[2016-05-31] MEDS: PANTOprazole SOD 40 MG TAB PO SCH (08:12)
[2016-05-31] MEDS: TIOTROPIUM BROMIDE 5 PUFF/90 MCG INH INH SCH (08:12)
[2016-05-31] MEDS: ROSUVASTATIN CALCIUM 10 MG TAB PO SCH (08:13)
[2016-05-31] MEDS: ESCITALOPRAM OXALATE 20 MG TAB PO SCH (08:13)
[2016-05-31] MEDS: BUDESONIDE/FORMOTEROL FUMARATE 160/4.5 60 PUFFS/INHALER INH SCH ×2 (08:14→21:00)
[2016-05-31] MEDS: ALBUMIN HUMAN 25% 12.5 GM/50 ML VIAL IV SCH ×2 (08:19→21:02)
[2016-05-31 08:35] LABS: BUN/CREATININE RATIO 14.1 (10-20); CREATININE 2.8 mg/dl (0.60-1.40); POTASSIUM 5.5 mmol/L (3.5-5.1)
[2016-05-31] MEDS: FEXOFENADINE HCL 180 MG TAB PO SCH (09:00)
--- NOTE | 2016-05-31 10:52 | Cardiology Follow-Up ---
Subjective Subjective Date of Service: May 31, 2016. Pt evaluation today including: conversation w/ patient, physical exam, chart review, lab review, review of studies, review of inpatient medication list Additional Details: Feeling fine. Asking about when can go home. No shortness of breath. No chest pain. Telemetry reviewed, sinus patricia this AM. Review of Systems Constitutional: No fever Respiratory: No cough, No shortness of breath Cardiac: No chest pain Abdomen: No nausea, No pain Neurologic: No memory loss Heme: No abnormal bleeding/bruising Skin: No rash Objective Vital Signs Last Vital Signs Documentation Date Time Temp Pulse Resp B/P Pulse Ox O2 Delivery O2 Flow Rate FiO2 05/31/16 08:00 Nasal Cannula 2.0 05/31/16 07:51 37.0 76 20 155/97 97 Physical Exam: General Appearance: WD/WN, no apparent distress Neck: no JVD Respiratory/Chest: lungs clear, normal breath sounds Cardiovascular: regular rate, rhythm, no JVD, no murmur Abdomen: non tender, soft Extremities: no pedal edema, no calf tenderness, + pertinent finding (Chronic venous stasis changes) Neurologic/Psychiatric: alert, normal mood/affect Skin: normal color, warm/dry, no rash Assessment and Plan 1. Acute kidney failure 2. Chronic systolic heart failure 3. Nonischemic cardiomyopathy 4. Hypertension Creatinine trending down after IV fluids, albumin yesterday. Normal renal U/S. Weight trending up, but no signs of heart failure on exam today. -- would stop IV fluids, albumin today. -- continue to hold diuretics, KIRILL inhibitor. Will need close follow-up on discharge -- has outpatient follow-up scheduled with CHF clinic on 06/04. Will continue to follow. [facility] Medicine and Nephrology care Medications: 05/31/16 07:55 Test 05/31/16 06:34 05/31/16 07:55 Bedside Glucose 89 mg/dl (70-99) Anion Gap 7.0 mmol/L (3-11) Est Creatinine Clear Calc Drug Dose 46.9 ml/min Estimated GFR () 30.4 Estimated GFR (Non- 26.2 BUN/Creatinine Ratio 14.1 (10-20) Calcium Level 8.0 mg/dl (8.5-10.1) Lab Results: Current Inpatient Medications Medications (Trade) Dose Ordered Sig/Parish Route Start Time Stop Time Status Last Admin Dose Admin Heparin Sodium (Porcine) (Heparin Sq 5000 Unit/0.5ml) 5,000 unit Q8 SQ 05/29/16 14:00 06/28/16 13:59 05/31/16 06:25 5,000 UNIT Acetaminophen (Tylenol Tab) 650 mg Q4H PRN PO 05/29/16 11:15 06/28/16 11:14 05/31/16 05:23 650 MG Ondansetron HCl (Zofran Inj) 4 mg Q6H PRN IV 05/29/16 11:15 06/28/16 11:14 Albuterol (Ventolin Hfa Inhaler) 2 puffs QID PRN INH 05/29/16 11:30 06/28/16 11:29 Aspirin (Ecotrin Tab) 325 mg DAILY PO 05/30/16 09:00 06/29/16 08:59 05/31/16 08:10 325 MG Budesonide/ Formoterol Fumarate (Symbicort 160/ 4.5 Inh) 2 puffs BID INH 05/29/16 21:00 06/28/16 20:59 05/29/16 19:55 2 PUFFS Buspirone HCl (Buspar Tab) 5 mg BID PO 05/29/16 21:00 06/28/16 20:59 05/31/16 08:12 5 MG Escitalopram Oxalate (Lexapro Tab) 20 mg DAILY PO 05/30/16 09:00 06/29/16 08:59 05/31/16 08:13 20 MG Fexofenadine HCl (Salena Tab) 180 mg DAILY PO 05/30/16 09:00 06/29/16 08:59 05/31/16 09:00 180 MG Salmeterol Xinafoate/ Fluticasone (Advair Diskus 500/50 Inh) 1 puff BID INH 05/29/16 21:00 06/28/16 20:59 05/31/16 08:11 1 PUFF Methocarbamol (Robaxin Tab) 750 mg DAILY PO 05/30/16 09:00 06/29/16 08:59 05/31/16 08:10 750 MG Nortriptyline HCl (Pamelor Cap) 25 mg HS PO 05/29/16 21:00 3/9/17 20:59 05/30/16 20:07 25 MG Rosuvastatin Calcium (Crestor Tab) 10 mg DAILY PO 05/30/16 09:00 06/29/16 08:59 05/31/16 08:13 10 MG Tiotropium [place] (Spiriva Handihaler Inhaler) 1 puff DAILY INH 05/30/16 09:00 06/29/16 08:59 05/31/16 08:12 1 PUFF Cholecalciferol (Vitamin D Tab) 2,000 inter.unit DAILY PO 05/30/16 09:00 06/29/16 08:59 05/31/16 08:11 2,000 INTER.UNIT Metoprolol Succinate (Toprol Xl Tab) 100 mg DAILY PO 05/30/16 09:00 06/29/16 08:59 05/31/16 08:10 100 MG Pantoprazole Sodium (Protonix Tab) 40 mg QAM PO 05/30/16 09:00 06/29/16 08:59 05/31/16 08:12 40 MG Miscellaneous Information 1 ea 1 ea QS N/A 05/29/16 16:00 06/28/16 15:59 Sodium Chloride 1,000 ml @ 125 mls/hr Q8H IV 05/30/16 07:45 06/29/16 07:44 05/30/16 09:17 125 MLS/HR Sodium Chloride (Nss 1000ml) 1,000 ml @ 100 mls/hr Q10H IV 05/30/16 09:00 06/29/16 08:59 05/31/16 05:22 100 MLS/HR Albumin Human (Albumin 25%) 12.5 gm BID@0900,2100 IV 05/30/16 09:00 06/02/16 08:59 05/31/16 08:19 12.5 GM
--- NOTE | 2016-05-31 14:29 | Nephrology Progress Note ---
Nephrology Progress Note Date of Service: May 31, 2016. Subjective 45 yo male with demian in the setting of overdiuresis. responding to the iv fluids. no overt worsening of sob. edema in legs though is starting to worsen again as expected with the fluids. Objective Date Time Temp Pulse Resp B/P Pulse Ox O2 Delivery O2 Flow Rate FiO2 05/31/16 12:52 36.8 73 20 128/77 98 Nasal Cannula 2.0 05/31/16 08:00 Nasal Cannula 2.0 05/31/16 07:51 37.0 76 20 155/97 97 Room Air 05/31/16 04:00 98 Nasal Cannula 2.0 05/31/16 02:55 36.9 67 20 154/113 98 Nasal Cannula 2.0 05/31/16 00:01 98 Nasal Cannula 2.0 05/30/16 23:00 36.8 67 20 147/87 98 Nasal Cannula 2.0 05/30/16 20:06 36.8 67 18 137/81 97 05/30/16 20:00 98 Nasal Cannula 2.0 05/30/16 16:00 Nasal Cannula 2.0 05/30/16 15:46 36.6 77 18 130/76 98 2.0 Physical Exam: General-aaox3, obese Eyes-no scleral icterus ENT-mmm Neck-supple Lungs-cta Heart-rrr Abdomen-bs+ s/nt/nd Extremities-+1 edema Neuro-nonfocal Current Inpatient Medications Medications (Trade) Dose Ordered Sig/Parish Route Start Time Stop Time Status Last Admin Dose Admin Heparin Sodium (Porcine) (Heparin Sq 5000 Unit/0.5ml) 5,000 unit Q8 SQ 05/29/16 14:00 06/28/16 13:59 05/31/16 06:25 5,000 UNIT Acetaminophen (Tylenol Tab) 650 mg Q4H PRN PO 05/29/16 11:15 06/28/16 11:14 05/31/16 05:23 650 MG Ondansetron HCl (Zofran Inj) 4 mg Q6H PRN IV 05/29/16 11:15 06/28/16 11:14 Albuterol (Ventolin Hfa Inhaler) 2 puffs QID PRN INH 05/29/16 11:30 06/28/16 11:29 Aspirin (Ecotrin Tab) 325 mg DAILY PO 05/30/16 09:00 06/29/16 08:59 05/31/16 08:10 325 MG Budesonide/ Formoterol Fumarate (Symbicort 160/ 4.5 Inh) 2 puffs BID INH 05/29/16 21:00 06/28/16 20:59 05/29/16 19:55 2 PUFFS Buspirone HCl (Buspar Tab) 5 mg BID PO 05/29/16 21:00 06/28/16 20:59 05/31/16 08:12 5 MG Escitalopram Oxalate (Lexapro Tab) 20 mg DAILY PO 05/30/16 09:00 06/29/16 08:59 05/31/16 08:13 20 MG Fexofenadine HCl (Salena Tab) 180 mg DAILY PO 05/30/16 09:00 06/29/16 08:59 05/31/16 09:00 180 MG Salmeterol Xinafoate/ Fluticasone (Advair Diskus 500/50 Inh) 1 puff BID INH 05/29/16 21:00 06/28/16 20:59 05/31/16 08:11 1 PUFF Methocarbamol (Robaxin Tab) 750 mg DAILY PO 05/30/16 09:00 06/29/16 08:59 05/31/16 08:10 750 MG Nortriptyline HCl (Pamelor Cap) 25 mg HS PO 05/29/16 21:00 06/28/16 20:59 05/30/16 20:07 25 MG Rosuvastatin Calcium (Crestor Tab) 10 mg DAILY PO 05/30/16 09:00 06/29/16 08:59 05/31/16 08:13 10 MG Tiotropium [place] (Spiriva Handihaler Inhaler) 1 puff DAILY INH 05/30/16 09:00 06/29/16 08:59 05/31/16 08:12 1 PUFF Cholecalciferol (Vitamin D Tab) 2,000 inter.unit DAILY PO 05/30/16 09:00 06/29/16 08:59 05/31/16 08:11 2,000 INTER.UNIT Metoprolol Succinate (Toprol Xl Tab) 100 mg DAILY PO 05/30/16 09:00 06/29/16 08:59 05/31/16 08:10 100 MG Pantoprazole Sodium (Protonix Tab) 40 mg QAM PO 05/30/16 09:00 06/29/16 08:59 05/31/16 08:12 40 MG Miscellaneous Information 1 ea 1 ea QS N/A 05/29/16 16:00 06/28/16 15:59 Sodium Chloride 1,000 ml @ 125 mls/hr Q8H IV 05/30/16 07:45 06/29/16 07:44 05/30/16 09:17 125 MLS/HR Sodium Chloride (Nss 1000ml) 1,000 ml @ 100 mls/hr Q10H IV 05/30/16 09:00 06/29/16 08:59 05/31/16 05:22 100 MLS/HR Albumin Human (Albumin 25%) 12.5 gm BID@0900,2100 IV 05/30/16 09:00 06/02/16 08:59 05/31/16 08:19 12.5 GM Last 24 Hours Test 05/31/16 06:34 05/31/16 07:55 05/31/16 11:43 Bedside Glucose 89 mg/dl 111 mg/dl Sodium Level 141 mmol/L Potassium Level 5.5 mmol/L Chloride Level 109 mmol/L Carbon Dioxide Level 25 mmol/L Anion Gap 7.0 mmol/L Blood Urea Nitrogen 39 mg/dl Creatinine 2.80 mg/dl Est Creatinine Clear Calc Drug Dose 46.9 ml/min Estimated GFR () 30.4 Estimated GFR (Non- 26.2 BUN/Creatinine Ratio 14.1 Random Glucose 121 mg/dl Calcium Level 8.0 mg/dl Assessment & Plan [id number]-likely from volume depletion. improving with iv fluids. renal us unimpressive. ok if creatinine continues to improve to tentatively plan on discharge tomorrow on lower dose diuretics. continue iv fluids as tolerated. no changes at this time. hyperkalemia-k continues to trend up on a renal diet with creatinine improving. hopefully k starts to improve, otherwise will need to give kayexalate to help control the k levels.
--- NOTE | 2016-05-31 15:50 | Progress Note ---
Internal Med Progress Note Date of Service: May 31, 2016. Provider Documentation: SUBJECTIVE: The patient was seen and examined Denies any complaints Remains stable OBJECTIVE: Vital Signs-as noted below Exam: General-No distress at rest Eyes-normal ENT-normal Neck-supple Lungs-decreased breath sound bilaterally No crackles Heart-Regular Abdomen-Benign,no masses,bowel sound present Extremities-1+ edema bilaterally-improved Chronic skin changes -no ulceration Neuro-AAOX3 Lab data as noted below. ASSESSMENT & PLAN: Acute renal failure with Hyperkalemia. Baseline Creatinine was slightly high Likely etiology being Dehydration ,use of Diuretics,recent use of Contrast Will give cautious amount of IVF Appreciate Nephrology input -Albumin and IVF Monitor PRP-Creatinine is improving Monitor PRP in AM Congestive heart failure with cardiomyopathy. His ejection fraction documented 15%. No acute symptoms Appreciate cardiology input May need small dose of Diuretic on discharge Chronic obstructive pulmonary disease, seems to be stable at this time. Continue with inhalers and other bronchodilators. Sleep apnea. He has not been using any CPAP and/or BiPAP. We will continue his oxygen therapy as usual. Gastroesophageal reflux disease, has been on PPI. Deep venous thrombosis prophylaxis with subQ heparin. Code status: He will be a full code. DISPOSITION Likely discharge tomorrow Vital Signs: Date Time Temp Pulse Resp B/P Pulse Ox O2 Delivery O2 Flow Rate FiO2 05/31/16 12:52 36.8 73 20 128/77 98 Nasal Cannula 2.0 05/31/16 08:00 Nasal Cannula 2.0 05/31/16 07:51 37.0 76 20 155/97 97 Room Air 05/31/16 04:00 98 Nasal Cannula 2.0 05/31/16 02:55 36.9 67 20 154/113 98 Nasal Cannula 2.0 05/31/16 00:01 98 Nasal Cannula 2.0 05/30/16 23:00 36.8 67 20 147/87 98 Nasal Cannula 2.0 05/30/16 20:06 36.8 67 18 137/81 97 05/30/16 20:00 98 Nasal Cannula 2.0 05/30/16 16:00 Nasal Cannula 2.0 Lab Results: Results Past 24 Hours Test 05/31/16 06:34 05/31/16 07:55 05/31/16 11:43 Range/Units Bedside Glucose 89 111 70-99 mg/dl Sodium Level 141 136-145 mmol/L Potassium Level 5.5 3.5-5.1 mmol/L Chloride Level 109 98-107 mmol/L Carbon Dioxide Level 25 21-32 mmol/L Anion Gap 7.0 3-11 mmol/L Blood Urea Nitrogen 39 7-18 mg/dl Creatinine 2.80 0.60-1.40 mg/dl Est Creatinine Clear Calc Drug Dose 46.9 ml/min Estimated GFR () 30.4 Estimated GFR (Non- 26.2 BUN/Creatinine Ratio 14.1 10-20 Random Glucose 121 70-99 mg/dl Calcium Level 8.0 8.5-10.1 mg/dl
[2016-05-31] MEDS: NORTRIPTYLINE HCL 25 MG CAP PO SCH (21:04)
[2016-06-01 00:01] VITALS: O2SAT 99
[2016-06-01] MEDS: SODIUM CHLORIDE 0.9% 1000ML 1,000 ML IV SCH (01:00)
[2016-06-01 04:00] VITALS: O2SAT 99
[2016-06-01 04:04] VITALS: BP 133/85; PULSE 81; TEMP 36.4; O2SAT 98
[2016-06-01] MEDS: HEPARIN SOD 5000 UNIT/0.5 ML CARP SQ SCH ×2 (06:11→14:00)
[2016-06-01 07:15] VITALS: BP 137/80; PULSE 74; TEMP 36.8; O2SAT 98
[2016-06-01] MEDS: TIOTROPIUM BROMIDE 5 PUFF/90 MCG INH INH SCH (07:19)
[2016-06-01] MEDS: FLUTICASONE/SALMETEROL (ADVAIR) 500/50 INH 14 PUFF INH SCH (07:19)
[2016-06-01] MEDS: METOPROLOL SUCC 50MG EXT REL TAB PO SCH (07:20)
[2016-06-01] MEDS: METHOCARBAMOL 750 MG TAB PO SCH (07:20)
[2016-06-01] MEDS: ASPIRIN 325 MG ECTAB PO SCH (07:20)
[2016-06-01] MEDS: ESCITALOPRAM OXALATE 20 MG TAB PO SCH (07:20)
[2016-06-01] MEDS: CHOLECALCIFEROL 1000 INTER.UNIT TAB PO SCH (07:21)
[2016-06-01] MEDS: FEXOFENADINE HCL 180 MG TAB PO SCH (07:21)
[2016-06-01] MEDS: ROSUVASTATIN CALCIUM 10 MG TAB PO SCH (07:21)
[2016-06-01] MEDS: PANTOprazole SOD 40 MG TAB PO SCH (07:21)
[2016-06-01] MEDS: BUDESONIDE/FORMOTEROL FUMARATE 160/4.5 60 PUFFS/INHALER INH SCH (07:22)
[2016-06-01] MEDS: ALBUMIN HUMAN 25% 12.5 GM/50 ML VIAL IV SCH (07:23)
[2016-06-01 07:41] LABS: BUN/CREATININE RATIO 13.4 (10-20); CALCIUM 8.1 mg/dl (8.5-10.1); CREATININE 2.5 mg/dl (0.60-1.40); POTASSIUM 4.7 mmol/L (3.5-5.1)
[2016-06-01] MEDS ORDERED: NURSING VERBAL MED ORDER ONE (08:30)
--- NOTE | 2016-06-01 10:07 | Nephrology Progress Note ---
Nephrology Progress Note Date of Service: Jun 01, 2016. Subjective 45 yo male with demian in the setting of overdiuresis. responding to the iv fluids. no overt worsening of sob. pt on chronic oxygen at baseline and breathing is acceptable. slept well last night. appetite is good. no complaints. Objective Date Time Temp Pulse Resp B/P Pulse Ox O2 Delivery O2 Flow Rate FiO2 06/01/16 08:00 Nasal Cannula 2.0 06/01/16 07:15 36.8 74 18 137/80 98 Nasal Cannula 2.0 06/01/16 04:04 36.4 81 16 133/85 98 Nasal Cannula 2.0 06/01/16 04:00 99 Nasal Cannula 2.0 06/01/16 00:01 99 Nasal Cannula 2.0 05/31/16 23:38 37.0 70 20 141/79 99 Nasal Cannula 2.0 05/31/16 20:00 98 Nasal Cannula 2.0 05/31/16 19:39 36.8 71 20 116/63 98 2.0 05/31/16 16:00 Nasal Cannula 2.0 05/31/16 15:58 37.1 67 18 138/77 97 2.0 05/31/16 12:52 36.8 73 20 128/77 98 Nasal Cannula 2.0 05/31/16 12:00 Nasal Cannula 2.0 Physical Exam: General-aaox3, obese Eyes-no scleral icterus ENT-mmm Neck-supple Lungs-clear Heart-rrr Abdomen-bs+ s/nt/nd Extremities-+1 edema Neuro-nonfocal Current Inpatient Medications Medications (Trade) Dose Ordered Sig/Parish Route Start Time Stop Time Status Last Admin Dose Admin Heparin Sodium (Porcine) (Heparin Sq 5000 Unit/0.5ml) 5,000 unit Q8 SQ 05/29/16 14:00 06/28/16 13:59 06/01/16 06:11 5,000 UNIT Acetaminophen (Tylenol Tab) 650 mg Q4H PRN PO 05/29/16 11:15 06/28/16 11:14 05/31/16 05:23 650 MG Ondansetron HCl (Zofran Inj) 4 mg Q6H PRN IV 05/29/16 11:15 06/28/16 11:14 Albuterol (Ventolin Hfa Inhaler) 2 puffs QID PRN INH 05/29/16 11:30 06/28/16 11:29 Aspirin (Ecotrin Tab) 325 mg DAILY PO 05/30/16 09:00 06/29/16 08:59 06/01/16 07:20 325 MG Budesonide/ Formoterol Fumarate (Symbicort 160/ 4.5 Inh) 2 puffs BID INH 05/29/16 21:00 06/28/16 20:59 05/29/16 19:55 2 PUFFS Buspirone HCl (Buspar Tab) 5 mg BID PO 05/29/16 21:00 06/28/16 20:59 06/01/16 07:20 5 MG Escitalopram Oxalate (Lexapro Tab) 20 mg DAILY PO 05/30/16 09:00 06/29/16 08:59 06/01/16 07:20 20 MG Fexofenadine HCl (Salena Tab) 180 mg DAILY PO 05/30/16 09:00 06/29/16 08:59 06/01/16 07:21 180 MG Salmeterol Xinafoate/ Fluticasone (Advair Diskus 500/50 Inh) 1 puff BID INH 05/29/16 21:00 06/28/16 20:59 06/01/16 07:19 1 PUFF Methocarbamol (Robaxin Tab) 750 mg DAILY PO 05/30/16 09:00 06/29/16 08:59 06/01/16 07:20 750 MG Nortriptyline HCl (Pamelor Cap) 25 mg HS PO 05/29/16 21:00 06/28/16 20:59 05/31/16 21:04 25 MG Rosuvastatin Calcium (Crestor Tab) 10 mg DAILY PO 05/30/16 09:00 06/29/16 08:59 06/01/16 07:21 10 MG Tiotropium [place] (Spiriva Handihaler Inhaler) 1 puff DAILY INH 05/30/16 09:00 06/29/16 08:59 06/01/16 07:19 1 PUFF Cholecalciferol (Vitamin D Tab) 2,000 inter.unit DAILY PO 05/30/16 09:00 06/29/16 08:59 06/01/16 07:21 2,000 INTER.UNIT Metoprolol Succinate (Toprol Xl Tab) 100 mg DAILY PO 05/30/16 09:00 06/29/16 08:59 06/01/16 07:20 100 MG Pantoprazole Sodium (Protonix Tab) 40 mg QAM PO 05/30/16 09:00 06/29/16 08:59 06/01/16 07:21 40 MG Miscellaneous Information 1 ea 1 ea QS N/A 05/29/16 16:00 06/28/16 15:59 Sodium Chloride (Nss 1000ml) 1,000 ml @ 100 mls/hr Q10H IV 05/30/16 09:00 06/29/16 08:59 06/01/16 01:00 100 MLS/HR Albumin Human (Albumin 25%) 12.5 gm BID@0900,2100 IV 05/30/16 09:00 06/02/16 08:59 06/01/16 07:23 12.5 GM Last 24 Hours Test 05/31/16 11:43 05/31/16 16:17 05/31/16 20:27 06/01/16 06:40 Bedside Glucose 111 mg/dl 87 mg/dl 97 mg/dl Sodium Level 143 mmol/L Potassium Level 4.7 mmol/L Chloride Level 110 mmol/L Carbon Dioxide Level 25 mmol/L Anion Gap 8.0 mmol/L Blood Urea Nitrogen 33 mg/dl Creatinine 2.50 mg/dl Est Creatinine Clear Calc Drug Dose 53.0 ml/min Estimated GFR () 34.9 Estimated GFR (Non- 30.1 BUN/Creatinine Ratio 13.4 Random Glucose 90 mg/dl Calcium Level 8.1 mg/dl Assessment & Plan [id number]-likely from volume depletion. improving with iv fluids. renal us unimpressive. creatinine improved from 3.8 to 2.5. not yet back to baseline. ok from renal perspective to go home and repeat bmp on saturday in [place]. would recommend follow up with me in [place] at end of month. was on lasix 40 bid as outpt and would like to restart diuretics on saturday at lasix 20mg po bid. however if worsening sob, pt should start sooner and contact us. hyperkalemia-k improved from 5.5 to 4.7 likely from renal diet and improving kidney function.
--- NOTE | 2016-06-01 10:20 | Progress Note ---
Internal Med Progress Note Date of Service: Jun 01, 2016. Provider Documentation: SUBJECTIVE: The patient was seen and examined Denies any complaints Remains stable Ready to be discharged today OBJECTIVE: Vital Signs-as noted below Exam: General-No distress at rest Generally weak Eyes-normal ENT-normal Neck-supple Lungs-decreased breath sound bilaterally No crackles Heart-Regular Abdomen-Benign,no masses,bowel sound present Extremities-1+ edema bilaterally-improved Chronic skin changes -no ulceration Neuro-AAOX3 Lab data as noted below. ASSESSMENT & PLAN: Acute renal failure with Hyperkalemia. Baseline Creatinine was slightly high Likely etiology being Dehydration ,use of Diuretics,recent use of Contrast Will give cautious amount of IVF Appreciate Nephrology input -Albumin and IVF Monitor PRP-Creatinine is improving Renal function improved -Creatinine 2.5 today Expected to improve to baseline Congestive heart failure with cardiomyopathy. His ejection fraction documented 15%. No acute symptoms Appreciate cardiology input May need small dose of Diuretic on discharge Will start Lasix 20 mg PO BID from Saturday Chronic obstructive pulmonary disease, seems to be stable at this time. Continue with inhalers and other bronchodilators. Sleep apnea. He has not been using any CPAP and/or BiPAP. We will continue his oxygen therapy as usual. Gastroesophageal reflux disease, has been on PPI. Deep venous thrombosis prophylaxis with subQ heparin. Code status: He will be a full code. DISPOSITION Likely discharge today Vital Signs: Date Time Temp Pulse Resp B/P Pulse Ox O2 Delivery O2 Flow Rate FiO2 06/01/16 08:00 Nasal Cannula 2.0 06/01/16 07:15 36.8 74 18 137/80 98 Nasal Cannula 2.0 06/01/16 04:04 36.4 81 16 133/85 98 Nasal Cannula 2.0 06/01/16 04:00 99 Nasal Cannula 2.0 06/01/16 00:01 99 Nasal Cannula 2.0 05/31/16 23:38 37.0 70 20 141/79 99 Nasal Cannula 2.0 05/31/16 20:00 98 Nasal Cannula 2.0 05/31/16 19:39 36.8 71 20 116/63 98 2.0 05/31/16 16:00 Nasal Cannula 2.0 05/31/16 15:58 37.1 67 18 138/77 97 2.0 05/31/16 12:52 36.8 73 20 128/77 98 Nasal Cannula 2.0 05/31/16 12:00 Nasal Cannula 2.0 Lab Results: Results Past 24 Hours Test 05/31/16 11:43 05/31/16 16:17 05/31/16 20:27 06/01/16 06:40 Range/Units Bedside Glucose 111 87 97 70-99 mg/dl Sodium Level 143 136-145 mmol/L Potassium Level 4.7 3.5-5.1 mmol/L Chloride Level 110 98-107 mmol/L Carbon Dioxide Level 25 21-32 mmol/L Anion Gap 8.0 3-11 mmol/L Blood Urea Nitrogen 33 7-18 mg/dl Creatinine 2.50 0.60-1.40 mg/dl Est Creatinine Clear Calc Drug Dose 53.0 ml/min Estimated GFR () 34.9 Estimated GFR (Non- 30.1 BUN/Creatinine Ratio 13.4 10-20 Random Glucose 90 70-99 mg/dl Calcium Level 8.1 8.5-10.1 mg/dl
[2016-06-01 12:09] VITALS: BP 162/89; PULSE 71; TEMP 36.4; O2SAT 93
[2016-06-01 13:33] VITALS: BP 162/89; PULSE 71; TEMP 36.4; O2SAT 93
--- NOTE | 2016-06-01 13:40 | Discharge Instructions ---
Discharge Instructions Admission Reason for Admission: Acute Renal Failure Discharge Discharge Diagnosis / Problem: Acute Renal Failure,CHF Discharge Goals Goal(s): Prevent Disease Progression Activity Recommendations Activity Limitations: resume your previous activity . Instructions / Follow-Up Instructions / Follow-Up Dr Moya on 06/08/16, CHF clinic on 06/04. Current Hospital Diet Patient's current hospital diet: AHA Diet (Heart Healthy), Renal Diet Discharge Diet Recommended Diet: AHA Diet (Heart Healthy), Renal Diet Fluid Restriction: 2000 ml (8 cups) Pending Studies Studies pending at discharge: no Medical Emergencies . Who to Call and When: Medical Emergencies: If at any time you feel your situation is an emergency, please call 911 immediately. . Non-Emergent Contact Non-Emergency issues call your: Primary Care Provider . Past History Medical & Surgical History: (1) Acute renal failure (2) COPD (chronic obstructive pulmonary disease) (3) DDD (degenerative disc disease), lumbar (4) HTN (hypertension) (5) Dyslipidemia (6) S/P tonsillectomy (7) H/O cardiac radiofrequency ablation . "Provider Documentation" section prepared by Brenda Cho. VTE Core Measure Inpt VTE Proph given/why not?: Unfractionated heparin SQ
--- NOTE | 2016-06-01 18:35 | Discharge Summary ---
Discharge Summary Admission Date: May 29, 2016 at 09:43 Discharge Date: Jun 01, 2016 Discharge Disposition: Home Principal Diagnosis: Acute Renal Failure,CHF Secondary Diagnoses/Problems: Please se H&P Consultations: Cardiology and Nephrology Medication Reconciliation Continued Medications: Albuterol Inhaler (Ventolin Inhaler) Aers 2 PUFFS INH QID PRN for Shortness of Breath, #5 INHALER Aspirin (Aspirin Ec) 325 Mg Tab 325 MG PO DAILY Budesonide/Formoterol Fumarate (Symbicort 160/4.5 Inhaler ) Aero 2 PUFFS INH BID, INHALER Buspirone Hcl (Buspirone Hcl) 5 Mg Tab 1 TAB PO BID for 30 Days, #60 TAB Cholecalciferol (Vitamin D3) 2,000 Unit Cap 1 CAP PO DAILY for 30 Days, #30 CAP 3 Refills Escitalopram Oxalate (Lexapro) 20 Mg Tab 20 MG PO DAILY, TAB Fexofenadine Hcl (Salena Allergy) 180 Mg Tab 1 TAB PO DAILY for 30 Days, #30 TAB 2 Refills Fluocinonide (Fluocinonide) 0.05 % Kiara 1 APPLN TOP BID for 30 Days, #60 ML 3 Refills Fluticasone Prop/Salmeterol (Advair Diskus 500/50 60 Dose) 1 Ea Aerp 1 PUFFS INH BID for 30 Days, #1 INHALER 5 Refills Furosemide (Lasix) 40 Mg Tab 20 MG PO BID, TAB Satrt from Saturday Methocarbamol (Robaxin) 750 Mg Tab 750 MG PO DAILY, TAB Metoprolol Succinate (Toprol Xl) 100 Mg Tabcr 1 TAB PO DAILY for 90 Days, #90 TAB 3 Refills Nortriptyline (Pamelor) 25 Mg Cap 25 MG PO HS, CAP Omeprazole (Prilosec) 40 Mg Capcr 40 MG PO DAILY, CAP Rosuvastatin Calcium (Crestor) 5 Mg Tab 10 MG PO DAILY, TAB Tiotropium [place] (Spiriva Handihaler) 30 Puff/540 Mcg Aerp 1 CAP INH DAILY for 30 Days, #30 CAP 3 Refills Discontinued Medications: Digoxin (Digox) 250 Mcg Tab 1 TAB PO DAILY Lisinopril (Prinivil) 5 Mg Tab 5 MG PO DAILY, TAB Potassium Chloride (Micro-K Ext Rel) 10 Meq Capcr 10 MEQ PO DAILY, CAP Admission Information HPI (per Admitting provider): DATE OF ADMISSION: 05/29/2016 PRIMARY CARE PHYSICIAN: Dr. Moya from [place]. CHIEF COMPLAINT: Tiredness and increasing shortness of breath on exertion and also noted to have abnormal labs at [place] [facility]. HISTORY OF PRESENT COMPLAINT: He is a 45-year-old obese male with significant past medical history of sleep apnea, COPD, cardiomyopathy with EF of 15%, hyperlipidemia, hypertension, GERD, apparently has been complaining of shortness of breath on exertion for a while. The symptoms have been going on since January of last year. He was seen by his primary care physician and for chronic leg edema, he was sent to [facility] in the lymphedema clinic and from there he was told that he needs to be seen by his primary care physician to work up for probable CHF. He went to see his primary care physician on and with more shortness of breath and chest pain. Following that, he was in [facility] and was noted to have an EF of 15%, so he was referred for cardiac cath at [facility]. He underwent a cardiac cath on 03 of May and was told that he does not have any significant coronary artery disease, but he has cardiomyopathy and with EF of 15%. Following that, he has had blood work that was on of last month and noted to have a creatinine of 1.3 at that time and yesterday he had another blood work and that did show creatinine to go up at 4.5 and he was in [place] ER following that abnormal lab work and from the ER, he has been sent to [facility] for continuation of the medical care. He complains to have weakness and tiredness and shortness of breath on exertion but he does not have any chest pain, any palpitation. He denies to have any fever, chills or rigors and he does not have any problem with urine and/or bowel habit and his legs have reasonably controlled edema at this time. In [facility], he was noted to have a potassium of 5.2. BUN of 57 and creatinine 4.28 and digoxin level of 2.3. He has been in telemetry unit of [facility] and will go from there. PAST MEDICAL HISTORY: Significant for COPD with emphysema, hypertension, hyperlipidemia, sleep apnea, has not been using any CPAP but uses oxygen all the time, GERD, obesity, and also recent diagnosis of cardiomyopathy with EF of 15%. PAST SURGICAL HISTORY: Tonsillectomy as a child. FAMILY HISTORY: Significant that father of heart attack and mother of complication of diabetes and pneumonia. Brother has diabetes too. SOCIAL HISTORY: He is . He has 2 children. He quit smoking long time ago. He drinks occasionally and he has been on oxygen 24 hours a day, but he can do his activities of daily living pretty well. ALLERGIES: LATEX, PENICILLIN AND TAPE. MEDICATIONS: As an outpatient, he has been on digoxin 250 mcg 1 daily, furosemide 40 mg twice daily, lisinopril 5 mg daily, albuterol inhaler 2 puffs q.i.d. as needed, aspirin 325 mg daily, Symbicort 160/4.5 two puffs b.i.d., buspirone 5 mg twice daily, vitamin D3 2000 units daily, Lexapro 20 mg daily, Salena 180 mg daily, Advair Diskus 500/50 one puff b.i.d., Robaxin 750 mg daily, Toprol-XL 100 mg daily, nortriptyline 25 mg at night, Prilosec 40 mg daily, potassium 10 mEq daily, Crestor 10 mg daily, Spiriva HandiHaler 1 cap inhalation daily. REVIEW OF SYSTEMS: As in history of present complaint. Other systemic review unremarkable. PHYSICAL EXAMINATION: GENERAL: On examination on the medical floor, he was not having any acute distress. VITAL SIGNS: Temperature 36.5, pulse was 75, blood pressure 137/89, saturation 98% on 2 liters nasal cannula. HEENT: Unremarkable. NECK: Supple. No JVD, no bruit. CHEST: Decreased breath sounds but no wheezing and/or crackles. HEART: S1, S2 regular. No murmur. ABDOMEN: Soft, benign, distended. Nontender. Bowel sounds present. EXTREMITIES: 1+ edema bilaterally, chronic skin changes but no significant ulceration. MUSCULOSKELETAL SYSTEM: No acute arthritis in any joint. CENTRAL NERVOUS SYSTEM: He was alert, awake, oriented x3. No focal sensory and/or motor deficit appreciated. LABORATORY DATA: Noted from [facility], potassium 5.2, BUN 57. Creatinine 4.28, his creatinine was 1.3 on 16th of last month and his digoxin level was 2.3. EKG will be reviewed and chest x-ray will be reviewed as well. IMPRESSION AND PLAN: 1. Acute renal failure with Hyperkalemia. He is admitted to telemetry unit, monitor his kidney function. We will get a nephrology consult. We will give a small amount of IV fluid, given the history of congestive heart failure and the acute renal failure could be due to contrast induced nephropathy.Hold Potassium and ACEI. 2. Congestive heart failure with cardiomyopathy. His ejection fraction documented 15%. I did not get the cath report from [facility]. We will get a cardiology evaluation while in the hospital for further management of his cardiomyopathy and congestive heart failure. 3. Chronic obstructive pulmonary disease, seems to be stable at this time. Continue with inhalers and other bronchodilators. 4. Sleep apnea. He has not been using any CPAP and/or BiPAP. We will continue his oxygen therapy as usual. 5. Gastroesophageal reflux disease, has been on PPI. 6. Deep venous thrombosis prophylaxis with subQ heparin. 7. Code status: He will be a full code. In my clinical assessment, the beneficiary meets criteria as per CMS for 2-midnight stay in the hospital. Dictated: 05/29/16 1133 Transcribed: 05/29/16 1238 <Electronically signed by Brenda Cho M.D.> Signed: 05/29/16 1443 ES Brenda Cho M.D. Hospital Course Acute renal failure with Hyperkalemia. Baseline Creatinine was slightly high Likely etiology being Dehydration ,use of Diuretics,recent use of Contrast Will give cautious amount of IVF Appreciate Nephrology input -Albumin and IVF Monitor PRP-Creatinine is improving Renal function improved -Creatinine 2.5 today Expected to improve to baseline Congestive heart failure with cardiomyopathy. His ejection fraction documented 15%. No acute symptoms Appreciate cardiology input May need small dose of Diuretic on discharge Will start Lasix 20 mg PO BID from Saturday Chronic obstructive pulmonary disease, seems to be stable at this time. Continue with inhalers and other bronchodilators. Sleep apnea. He has not been using any CPAP and/or BiPAP. We will continue his oxygen therapy as usual. Gastroesophageal reflux disease, has been on PPI. Deep venous thrombosis prophylaxis with subQ heparin. Code status: He will be a full code. DISPOSITION Likely discharge today Total time spent on discharge = 35 minutes This includes examination of the patient, discharge planning, medication reconciliation, and communication with other providers. Discharge Instructions Admission Reason for Admission: Acute Renal Failure Discharge Discharge Diagnosis / Problem: Acute Renal Failure,CHF Discharge Goals Goal(s): Prevent Disease Progression Activity Recommendations Activity Limitations: resume your previous activity . Instructions / Follow-Up Instructions / Follow-Up Dr Moya on 06/08/16, CHF clinic on 06/04. Current Hospital Diet Patient's current hospital diet: AHA Diet (Heart Healthy), Renal Diet Discharge Diet Recommended Diet: AHA Diet (Heart Healthy), Renal Diet Fluid Restriction: 2000 ml (8 cups) Pending Studies Studies pending at discharge: no Medical Emergencies . Who to Call and When: Medical Emergencies: If at any time you feel your situation is an emergency, please call 911 immediately. . Non-Emergent Contact Non-Emergency issues call your: Primary Care Provider . Past History Medical & Surgical History: (1) Acute renal failure (2) COPD (chronic obstructive pulmonary disease) (3) DDD (degenerative disc disease), lumbar (4) HTN (hypertension) (5) Dyslipidemia (6) S/P tonsillectomy (7) H/O cardiac radiofrequency ablation . "Provider Documentation" section prepared by Brenda Cho. VTE Core Measure Inpt VTE Proph given/why not?: Unfractionated heparin SQ <Electronically signed by Brenda Cho M.D.>
== END 2016-06-01 14:21 | disposition home or self-care (01) | DRG 683 ==
LOC: C.2T 09:43
PROVIDERS: ADMIT Internal Medicine; ATTEND Internal Medicine
DX: N17.9 Acute kidney failure, unspecified (principal); Z68.42 Body mass index [BMI] 45.0-49.9, adult; I42.9 Cardiomyopathy, unspecified; I50.22 Chronic systolic (congestive) heart failure; E87.5 Hyperkalemia; E86.0 Dehydration; T50.2X5A Adverse effect of carbonic-anhydrase inhibitors, benzothiadiazides and other diuretics, initial encounter; J43.9 Emphysema, unspecified; I12.9 Hypertensive chronic kidney disease with stage 1 through stage 4 chronic kidney disease, or unspecified chronic kidney disease; N18.9 Chronic kidney disease, unspecified; I89.0 Lymphedema, not elsewhere classified; R73.03 Prediabetes; K21.9 Gastro-esophageal reflux disease without esophagitis; E78.5 Hyperlipidemia, unspecified; G47.30 Sleep apnea, unspecified; E55.9 Vitamin D deficiency, unspecified; E66.01 Morbid (severe) obesity due to excess calories; Z82.49 Family history of ischemic heart disease and other diseases of the circulatory system; Z87.891 Personal history of nicotine dependence; Z99.81 Dependence on supplemental oxygen; Z79.82 Long term (current) use of aspirin; Z79.51 Long term (current) use of inhaled steroids; Z79.899 Other long term (current) drug therapy

== ENCOUNTER → 2016-06-04 | Outpatient (CLI) | payer OTHER ==
[~2016-06-04] MED LIST changes: -DIGO0.2519 PO; -LISI5TAB PO; -POTA10CA28 PO
[2016-06-04 11:42] LABS: BASO % 0.8 %; BASO ABS # 0.08 K/uL (0-0.2); COMPLETE YES; HEMATOCRIT 43.6 % (42-52); IG% 0.1 %; LYMPH % 33.4 %; LYMPH ABS # 3.29 K/uL (1.2-3.4); MEAN CELL VOLUME 88.1 fL (80-100); MEAN CORPUSCULAR HEMOGLOBIN 30.1 pg (25-34); MEAN CORPUSCULAR HGB CONC 34.2 g/dl (32-36); MEAN PLATELET VOLUME 9.4 fL (7.4-10.4); MONO % 6.7 %; PLATELET COUNT 270 K/uL (130-400); RED BLOOD COUNT 4.95 M/uL (4.7-6.1); WHITE BLOOD COUNT 9.85 K/uL (4.8-10.8)
[2016-06-04 11:51] LABS: BLOOD UREA NITROGEN 13 mg/dl (7-18); GLUCOSE 100 mg/dl (70-99)
[2016-06-04 11:52] LABS: BUN/CREATININE RATIO 7.2 (10-20); CARBON DIOXIDE 26 mmol/L (21-32); CHLORIDE 106 mmol/L (98-107); POTASSIUM 4.3 mmol/L (3.5-5.1); SODIUM 143 mmol/L (136-145)
[2016-06-04 12:02] LABS: FERRITIN 176.6 ng/ml (8.0-388.0); TOTAL IRON BINDING CAPACITY 170 mcg/dl (250-450)
== END | disposition home or self-care (01) ==
LOC: C.LAB1850 09:32
PROVIDERS: ATTEND Internal Medicine
DX: I50.9 Heart failure, unspecified (principal); I10 Essential (primary) hypertension; I42.8 Other cardiomyopathies

== ENCOUNTER → 2017-08-26 | Outpatient (CLI) | payer OTHER ==
[~2017-08-26] MED LIST changes: -SYMIN160 INH
[2017-08-26 10:11] LABS: HEMATOCRIT 46.1 % (42-52); HEMOGLOBIN 15.9 g/dL (14.0-18.0); MEAN CELL VOLUME 91.1 fL (80-100); MEAN CORPUSCULAR HEMOGLOBIN 31.4 pg (25-34); MEAN CORPUSCULAR HGB CONC 34.5 g/dl (32-36); MEAN PLATELET VOLUME 8.8 fL (7.4-10.4); PLATELET COUNT 304 K/uL (130-400); RED CELL DISTRIBUTION WIDTH SD 42.6 fL (36.4-46.3); WHITE BLOOD COUNT 9.49 K/uL (4.8-10.8)
[2017-08-26 10:35] LABS: BLOOD UREA NITROGEN 9 mg/dl (7-18); CALCIUM 8.4 mg/dl (8.5-10.1); CARBON DIOXIDE 30 mmol/L (21-32); CREATININE 1.22 mg/dl (0.60-1.40); GLUCOSE 112 mg/dl (70-99); SODIUM 143 mmol/L (136-145)
== END | disposition home or self-care (01) ==
LOC: C.LAB1850 09:13
PROVIDERS: ATTEND Internal Medicine Interventional Cardiology
DX: I50.9 Heart failure, unspecified (principal)